=== PATIENT | male | born 1960 | race Two or more races ===

== ENCOUNTER 2016-06-05 10:09 | Emergency (ER) | payer MEDICAID ==
[2016-06-05 10:15] VITALS: TEMP 98.6
[2016-06-05] MEDS ORDERED: ONDANSETRON 4 MG/2 ML VIAL IVP ONE (10:27)
--- NOTE | 2016-06-05 10:29 | EDPHY ---
H & P Stated Complaint: r leg swelling and pain/hx dvt HPI/ROS: CHIEF COMPLAINT: Lower extremity pain, possible DVT HISTORY OF PRESENT ILLNESS: right lower extremity pain, swelling for 3 days. This was gradual onset. Constant duration. Moderate to severe. Does not radiate. Worse with ambulation and palpation. Some improvement with rest and elevation. History of DVT in the left lower extremity popliteal and lower. He had been on Coumadin for this until 11 days ago. At that time he stops for tooth extraction. Tooth extraction was last May 27. That evening he started taking Xarelto due to the left lower extremity DVT. He did well until 2-3 days ago when he noted the above complaints. No chest pain shortness of breath. No fever or chills. No erythema of the lower extremity. No other associated complaints or modifying factors. 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 REVIEW OF SYSTEMS: Ten systems reviewed and are negative unless otherwise noted in the HPI EXAMINATION General Appearance: Alert, no distress. Obese Head: normocephalic, atraumatic Eyes: Pupils equal and round, no conjunctival pallor or injection ENT, Mouth: Mucous membranes moist Neck: Normal inspection, supple, non-tender Respiratory: Lungs are clear to auscultation. No wheezing, rhonchi or crackles. Cardiovascular: Regular rate and rhythm . No murmur. Pulses are intact symmetrically in the radial, DP and PT at 2+. Gastrointestinal: Abdomen is soft and nontender . Neurological: A&O, nonfocal, steady but antalgic. Skin: Warm and dry, no rash . No erythema. No petechia purpura. Extremities: Tenderness to palpation of the right popliteal and calf. There is no palpable cord. No edema of the lower extremities bilaterally. Range of motion is intact. No evidence of DVT by examination Psychiatric: Mood and affect normal DIFFERENTIAL DIAGNOSES: Including but not limited to acute DVT, chronic DVT, lower extremity pain, muscular strain MDM: 10:25 a.m. right lower extremity pain in a patient with a history of DVT. He was off his anticoagulants for several days due to a surgical procedure, then resume Xarelto on the 27 of May. Examination reveals tenderness but no erythema or palpable cords. Ultrasound has been ordered. 11:30 a.m. notified by radiologist that there is no evidence of DVT in the right lower extremity. There is note of a Walker's cyst. This is consistent with examination as well. He is resting comfortably in no acute distress. Labs are within normal limits. Will be discharged home with instructions to continue his Xarelto and follow up with his primary care physician for further care. Also Orthopedics as needed should he wish to pursue surgical intervention. Patient's spouse are comfortable with this plan and discharged home in stable condition. SUPERVISION: Patient was evaluated in conjunction with the supervising physician. Please see their note for details. Source: Patient, Family Exam Limitations: No limitations - Personal History Current Tetanus/Diphtheria Vaccine: Yes Tetanus Vaccine Date: 2009 - Medical/Surgical History Hx Asthma: No Hx Chronic Respiratory Disease: No Hx Diabetes: No Hx Cardiac Disease: No Hx Renal Disease: No Hx Cirrhosis: No Hx Alcoholism: No Hx HIV/AIDS: No Hx Splenectomy or Spleen Trauma: No Other PMH: BIPOLAR, ANXIETY , DVT, hypoparathyroidism - Social History Smoking Status: Never smoked Constitutional: Initial Vital Signs Temperature (C) 98.6 F 06/05/16 10:13 Heart Rate 103 H 06/05/16 10:13 Respiratory Rate 22 H 06/05/16 10:13 Blood Pressure 135/83 H 06/05/16 10:13 O2 Sat (%) 92 06/05/16 10:13 O2 Delivery Mode Room Air Allergies/Adverse Reactions: No Known Allergies Allergy (Verified 06/05/16 10:09) Home Medications: Medication Instructions Recorded Gabapentin [Neurontin 300 MG (*)] 300 mg PO TID 05/07/15 QUEtiapine FUMARATE [Seroquel 100 100 mg PO HS 03/29/16 mg (*)] clonIDINE [Catapres (*)] 0.1 mg PO BID 03/29/16 risperiDONE [Risperdal] 2 mg PO DAILY 03/29/16 Acetaminophen [Tylenol 325mg (*)] 650 mg PO Q4HRS PRN #0 tab 03/31/16 oxyCODONE IR [Oxycodone Ir (*)] 5 mg PO Q4-6PRN PRN #10 tab 03/31/16 Xarelto 06/05/16 oxyCODONE HCL/ACETAMINOPHEN 1 each PO Q4-6PRN PRN #20 tablet 06/05/16 [Percocet 5-325 mg Tablet] Medical Decision Making - Data Points Laboratory Results: Laboratory Results 06/05/16 10:30 06/05/16 10:30 06/05/16 10:30 WBC 9.17 10^3/uL (3.80-9.50) RBC 5.13 10^6/uL (4.40-6.38) Hgb 14.7 g/dL (13.7-17.5) Hct 43.1 % (40.0-51.0) MCV 84.0 fL (81.5-99.8) MCH 28.7 pg (27.9-34.1) MCHC 34.1 g/dL (32.4-36.7) RDW 13.4 % (11.5-15.2) Plt Count 265 10^3/uL (150-400) MPV 9.6 fL (8.7-11.7) Neut % (Auto) 69.6 % (39.3-74.2) Lymph % (Auto) 22.0 % (15.0-45.0) [place] % (Auto) 7.5 % (4.5-13.0) Eos % (Auto) 0.5 L % (0.6-7.6) Baso % (Auto) 0.2 L % (0.3-1.7) Nucleat RBC Rel Count 0.0 % (0.0-0.2) Absolute Neuts (auto) 6.37 10^3/uL (1.70-6.50) Absolute Lymphs (auto) 2.02 10^3/uL (1.00-3.00) Absolute Monos (auto) 0.69 10^3/uL (0.30-0.80) Absolute Eos (auto) 0.05 10^3/uL (0.03-0.40) Absolute Basos (auto) 0.02 10^3/uL (0.02-0.10) Absolute Nucleated RBC 0.00 10^3/uL (0-0.01) Immature Gran % 0.2 % (0.0-1.1) Immature Gran # 0.02 10^3/uL (0.00-0.10) PT 14.0 SEC (12.0-15.0) INR 1.09 (0.83-1.16) APTT 29.8 SEC (23.0-38.0) Sodium 143 mEq/L (134-144) Potassium 4.4 mEq/L (3.5-5.2) Chloride 108 mEq/L (97-110) Carbon Dioxide 21 L mEq/l (22-31) Anion Gap 14 mEq/L (8-16) BUN 19 mg/dL (7-23) Creatinine 1.2 mg/dL (0.7-1.3) Estimated GFR > 60 Glucose 124 H mg/dL (70-100) Calcium 9.1 mg/dL (8.5-10.4) Medications Given: Discontinued Medications Morphine Sulfate (Morphine) 6 mg IVP Q1HR ONE Stop: 06/05/16 10:28 Last Admin: 06/05/16 10:36 Dose: 6 mg Ondansetron HCl (Zofran) 4 mg IVP EDNOW ONE Stop: 06/05/16 10:28 Last Admin: 06/05/16 10:36 Dose: 4 mg Departure - Departure Disposition: Home, Routine, Self-Care Clinical Impression: Extremity pain Qualifiers: Extremity pain location: lower extremity Laterality: right Qualifier Code: ( M79.604) Pain in right leg Synovial cyst of knee Qualifiers: Laterality: right Qualifier Code: (M71.21) Synovial cyst of popliteal space [ Walker], right knee Condition: Good Instructions: Bakers Cyst (ED) Additional Instructions: Follow-up with primary care physician for management and to discuss orthopedics referral. Continue taking Xarelto per primary care physician instructions Referrals: Paty Grant [Primary Care Provider] - As per Instructions Prescriptions: oxyCODONE HCL/ACETAMINOPHEN [Percocet 5-325 mg Tablet] 1 each PO Q4-6PRN PRN # 20 tablet PRN Reason: Pain, Moderate
[2016-06-05 10:42] LABS: % IMMATURE GRANULYOCYTES 0.2 % (0.0-1.1); ABSOLUTE IMMATURE GRANULOCYTES 0.02 10^3/uL (0.00-0.10); ADD DIFF? NO; ADD MORPH? NO; ADD SCAN? NO; ATYPICAL LYMPHOCYTE FLAG 0 (0-99); FRAGMENT RBC FLAG 0 (0-99); HEMATOCRIT 43.1 % (40.0-51.0); HEMOGLOBIN 14.7 g/dL (13.7-17.5); LEFT SHIFT FLG 0 (0-99); LIPEMIA HEMOLYSIS FLAG 90 (0-99); MEAN CELL HEMOGLOBIN 28.7 pg (27.9-34.1); MEAN CELL HEMOGLOBIN CONCENTR. 34.1 g/dL (32.4-36.7); MEAN PLATELET VOLUME 9.6 fL (8.7-11.7); PLATELET CLUMPS FLAG 0 (0-99); PLATELET COUNT 265 10^3/uL (150-400); RED BLOOD CELL COUNT 5.13 10^6/uL (4.40-6.38); RED CELL DISTRIBUTION WIDTH 13.4 % (11.5-15.2)
[2016-06-05 10:46] LABS: INR 1.09 (0.83-1.16)
[2016-06-05 10:47] LABS: APTT 29.8 SEC (23.0-38.0)
[2016-06-05 11:18] LABS: ANION GAP 14 mEq/L (8-16); CALCIUM 9.1 mg/dL (8.5-10.4); CARBON DIOXIDE 21 mEq/l (22-31); CHLORIDE 108 mEq/L (97-110); CREATININE 1.2 mg/dL (0.7-1.3); GLOMERULAR FILTRATION RATE > 60; GLUCOSE 124 mg/dL (70-100); POTASSIUM 4.4 mEq/L (3.5-5.2); SODIUM 143 mEq/L (134-144)
--- NOTE | 2016-06-05 11:35 | US ---
Right Lower Extremity Deep Venous Duplex Doppler Ultrasound History: Right lower extremity leg pain and swelling. Technique: The Right lower extremity deep venous system and veins of the proximal calf were interrog ated with grayscale, color, and spectral Doppler imaging. Findings: The right common femoral, superficial femoral, popliteal, and veins of the calf normally c ompress on grayscale imaging. The deep venous system and veins of the proximal calf have normal flow and expected variability. The visualized greater saphenous vein compresses normally without thrombus. There is a small Walker's cyst posterior medial aspect of the right knee and measures about 4.2 x 2.5 x 5.7 cm. Impression: No deep venous thrombosis in the right lower extremity. Walker's cyst posterior medial right knee. These findings were discussed by telephone with Dr. Federico Dove PA-C at 1130 hours
[2016-06-05 11:51] VITALS: BP 118/75; PULSE 88; RESP 18; O2SAT 90
== END 2016-06-05 11:51 | disposition home or self-care (01) ==
DX: M71.21 Synovial cyst of popliteal space [Baker], right knee (principal); Z86.718 Personal history of other venous thrombosis and embolism; Z79.01 Long term (current) use of anticoagulants
CPT/HCPCS: 96374; J2405

== ENCOUNTER → 2016-06-20 | Outpatient (CLI) | payer MEDICAID | LOC: FIMAGING 13:33 | PROVIDERS: ATTEND Family Medicine | DX: M17.11 Unilateral primary osteoarthritis, right knee (principal); M25.461 Effusion, right knee ==

== ENCOUNTER → 2016-07-15 | Outpatient (CLI) | payer MEDICAID | LOC: FIMAGING 12:41 | DX: M25.562 Pain in left knee (principal) ==